=== PATIENT | male | born 1980 | race African-American/Black ===

== ENCOUNTER 2024-04-08 22:46 | Emergency (ER) | payer MEDICAID, SELFPAY ==
[2024-04-08 22:49] VITALS: BP 132/98; PULSE 115; RESP 16; TEMP 36.4; O2SAT 96; BMI 22.3
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
[2024-04-09] LABS: AST(SGOT) 83 U/L (15-37); Alanine Aminotransfer ALT/SGPT 53 U/L (16-61); Albumin, Serum 4.2 g/dL (3.2-5.0); Alkaline Phosphatase 115 U/L (45-117); Anion Gap 9 (5-15); BUN 16 mg/dL (7-18); BUN/Creat Ratio 12.8 RATIO (10-20); Calcium,Total 9.4 mg/dL (8.5-10.1); Chloride 102 mmol/L (98-107); Creatinine, Serum 1.25 mg/dL (0.70-1.30); EST Glomerular Filtration Rate 66 mL/min (>60); Est Glom Filt Rate - Afr Amer 80 mL/min (>60); Estimated Creatinine Clearance 80.06 ml/min; Globulin 4.1 g/dL (2.2-4.2); Glucose 84 mg/dL (74-106); Potassium 3.1 mmol/L (3.5-5.1); Protein, Total 8.3 g/dL (6.4-8.2); Sodium Level 136 mmol/L (136-145)
[2024-04-09] MEDS: Ibuprofen 600 MG Tablet PO (00:29)
[2024-04-09] MEDS: Potassium Chloride Oral Tablet 20 MEQ PO (00:29)
[2024-04-09 00:53] LABS: Amphetamine Urine VISTA NEGATIVE (<1000 ng/mL); Barbiturate Urine VISTA NEGATIVE (< 200 ng/mL); Benzodiazepine Urine VISTA NEGATIVE (< 200 ng/mL); Cocaine Urine VISTA POSITIVE (< 300 ng/mL); Ecstacy Urine VISTA NEGATIVE (< 500 ng/mL); Methadone Urine VISTA NEGATIVE (< 300 ng/mL); PCP Urine VISTA NEGATIVE (< 25 ng/mL); THC Urine VISTA POSITIVE (< 50 ng/mL); Vista UDS pH Range 4
[2024-04-09 01:00] VITALS: BP 134/81; PULSE 101; RESP 16; O2SAT 95
[2024-04-09 01:47] VITALS: BP 134/86; PULSE 101; RESP 16; TEMP 36.7; O2SAT 95
[2024-04-09 01:48] LABS: Absolute Lymphocyte Count 1.69 X10^3/uL (0.83-4.51); Absolute Neutrophil Count 6.4 X10^3/uL (2.0-7.7); Basophil# 0.07 X10^3/uL; Basophil% 0.8 % (0-1); Eosinophils% 1.1 % (0-5); Hematocrit 41.4 % (40-54); Hemoglobin 15.1 g/dL (13.0-16.5); Lymphocyte # 1.69 X10^3/ul (0.83-4.51); Lymphocyte % 18.3 % (19-41); Mean Corp Hgb Conc 36.5 g/dL (32-36); Mean Corpuscular Volume 82.3 fL (80-94); Mean Platelet Vol. 9.4 fl (6.2-12.0); Monocyte# 0.91 X10^3/uL; Monocyte% 9.9 % (0-10); NRBC Flagged by Analyzer 0 % (0-5); Neutrophil # 6.43 X10^3/uL (2.7-7.7); Neutrophil % 69.7 % (47-70); Platelet Count 274 K/mm3 (150-450); RBC Distribution Width CV 12.9 % (11.6-14.6); RBC Distribution Width SD 38.5 fl (35.1-43.9); Red Blood Count 5.03 M/mm3 (4.6-6.2); White Blood Count 9.2 K/mm3 (4.4-11.0)
== END 2024-04-09 02:29 | disposition home or self-care (01) ==
PROVIDERS: Emergency Provider Emergency Medicine; Visit Provider Emergency Medicine
DX: R45.851 Suicidal ideations (principal); F25.9 Schizoaffective disorder, unspecified; F31.9 Bipolar disorder, unspecified; F17.210 Nicotine dependence, cigarettes, uncomplicated; F43.0 Acute stress reaction; M79.605 Pain in left leg; Z59.00 Homelessness unspecified; F41.9 Anxiety disorder, unspecified; Z79.899 Other long term (current) drug therapy; Z79.890 Hormone replacement therapy
CPT/HCPCS: 80053; 80307; 80320; 85025; 99285; G0480

== ENCOUNTER 2024-04-09 13:49 | Emergency (ER) | payer MEDICAID, SELFPAY ==
[2024-04-09 13:51] VITALS: BP 163/109; PULSE 102; RESP 20; TEMP 36.2; BMI 22.6
--- NOTE | 2024-04-09 14:47 | EDS_ITS ---
HPI <SHAMIKA Bridges - Last Filed: 04/09/24 21:27> History of Present Illness Chief Complaint: Suicidal Narrative Narrative: Patient is a 44-year-old male with history of schizoaffective disorder who is currently homeless. Patient presents to the emergency department for suicidal ideation. Patient was seen here yesterday, patient was seen by Dr. Coon, he was able to prescribe the patient his medications, he did have a safety plan put in place, the patient had follow-up scheduled. The patient slept here last evening in a common area. Patient tried to go back to the [facility], he was told he there was no beds. Patient then went to [facility] however they were unable to help him. Patient states he is continuing to feel suicidal, he states he wants to run into traffic or drink chemical. He is here for evaluation. He states I need help. PFS <SHAMIKA Bridges - Last Filed: 04/09/24 21:27> [facility] Medical History Schizoaffective disorder Bipolar 1 disorder Anxiety Depression Home Medications ?Medication ?Instructions ?Recorded ?Last Taken ?Type aripiprazole 10 mg tablet (Abilify) 10 mg PO DAILY #30 tabs 04/09/24 Unknown Rx divalproex 500 mg tablet,delayed 500 mg PO BID #60 tabs 04/09/24 Unknown Rx release (Depakote) paroxetine HCl 10 mg tablet 10 mg PO DAILY #30 tabs 04/09/24 Unknown Rx risperidone 1 mg tablet (Risperdal) 1 mg PO QHS #30 tabs 04/09/24 Unknown Rx Social History Smoking Status: Current every day smoker tobacco type: cigarettes ROS <SHAMIKA Bridges - Last Filed: 04/09/24 21:27> ROS ED ROS Narrative Constitutional: Negative for fever, chills, weight loss, weakness Eyes: Negative for vision loss, vision change, double vision ENT: Negative for any sore throat, ear pain, congestion Cardiovascular: Negative for any chest pain, tightness, palpitations Respiratory: Negative for any cough, sputum production, hemoptysis, dyspnea, dyspnea on exertion, orthopnea Gastrointestinal: Negative for any abdominal pain, nausea, vomiting, diarrhea, constipation, blood in stool, blood in vomit : Negative for any urinary frequency, dysuria, retention, blood in urine Muscle skeletal: Negative for any neck pain, back pain Neurological: Negative for any headache, syncope, dizziness Skin: Negative for any rashes, itching, abrasions, lacerations Psychiatric: Negative for any depression, homicidal ideation. Positive for anxiety, situational stress, suicidal ideation Hematologic: Negative for any excessive bruising, easy bleeding EXAM <SHAMIKA Bridges - Last Filed: 04/09/24 21:27> Physical Exam Narrative Exam Narrative: Vital signs reviewed. Patient appears alert and orient x 4. Patient is acting appropriate following commands. HEET: Head normocephalic atraumatic, TMs clear bilaterally. Posterior pharynx is clear, moist mucous membranes. Nares clear bilaterally. Neck: Supple with no lymphadenopathy or tenderness. No signs of meningismus. Cardiac: Regular rate and rhythm no murmurs gallops or rubs, equal peripheral pulses bilaterally. Respiratory: Lungs clear to auscultation bilaterally. No chest tenderness. Abdomen: Soft, nontender, nondistended. No abdominal bruit or pulsatile masses. No hepatosplenomegaly Extremities: No peripheral edema, no signs of gross trauma or deformity. Active full range of motion of all extremities. Neuro: Cranial nerves II through XII intact, no focal neurological deficits. Skin: Clean dry and intact with no rash, purpura, petechiae, vesicles or pustules. Backs/flank: No CVA tenderness, no midline spinal tenderness, no deformity. Psych: Normal mood and affect. Patient is not psychotic however patient does exhibit suicidal ideation, states that he wants to run in front of traffic or ingest some chemicals. He states he is done this in the past. He states things are just not going his way recently. Const Vital Signs: 04/09/24 13:51 Temperature 97.2 F L Temperature Source Temporal Pulse Rate 102 H Respiratory Rate 20 H Blood Pressure 163/109 H Blood Pressure Mean 127 Positive well nourished and well developed General Appearance ED: well developed <Dr. Adolph Howard DO - Last Filed: 04/09/24 21:28> Physical Exam Const Vital Signs: 04/09/24 13:51 Temperature 97.2 F L Temperature Source Temporal Pulse Rate 102 H Respiratory Rate 20 H Blood Pressure 163/109 H Blood Pressure Mean 127 MDM <Romulo Dutton NON LICENSED NUCLEAR PLANT OPERATOR-C - Last Filed: 04/09/24 21:27> [facility] Lab Data Labs: Laboratory Results - last 24 hr 04/09/24 04/09/24 14:55 14:56 WBC 7.3 RBC 4.93 Hgb 14.6 Hct 40.5 MCV 82.2 MCH 29.6 MCHC 36.0 RDW Std Deviation 38.0 RDW Coeff of Rojelio 12.8 Plt Count 262 MPV 9.5 Immature Gran % (Auto) 0.300 Neut % (Auto) 74.0 H Lymph % (Auto) 13.8 L [place] % (Auto) 10.6 H Eos % (Auto) 0.8 Baso % (Auto) 0.5 Absolute Neuts (auto) 5.4 Absolute Lymphs (auto) 1.01 Nucleated RBC % 0 Sodium 136 Potassium 3.7 Chloride 104 Carbon Dioxide 26.0 Anion Gap 6 BUN 13 Creatinine 1.03 Estim Creat Clear Calc 98.61 Est GFR (MDRD) Af Amer 100 Est GFR (MDRD) Non-Af 83 BUN/Creatinine Ratio 12.6 Glucose 64 L Calcium 9.1 Urine Opiates Screen NEGATIVE Urine Methadone Screen NEGATIVE Ur Barbiturates Screen NEGATIVE Ur Phencyclidine Scrn NEGATIVE Ur Amphetamines Screen NEGATIVE MDMA (Ecstasy) Screen NEGATIVE U Benzodiazepines Scrn NEGATIVE Urine Cocaine Screen POSITIVE H U Cannabinoids Screen NEGATIVE Ur Drug Screen Comment Ethyl Alcohol < 3.0 Treatment and Re-Evaluation :: Differential diagnosis includes however is not limited to: Suicidal ideation, homicidal ideation, anxiety, stress-induced psychosis, medication noncompliance, homelessness Patient appears to be in no obvious respiratory distress vital signs are stable. Patient presents to the emergency department with complaints of suicidal ideation, homelessness. Patient was seen here last evening, he was supposed to follow-up, get his medications refilled however he was unable to do so. Patient is now here stating that his suicidal ideations worse. Patient received a suicide order set, as well as drug screening, basic labs. Patient is not psychotic. I spoke with crisis, they will be in to evaluate the patient. Patient has a sitter currently. Patient remained stable, laboratory values showed normal CBC, patient's ismael mistries were unremarkable, patient's toxicology shows positive for cocaine abuse. Patient's alcohol is negative. Patient is currently talking with crisis. Patient was evaluated by crisis. Patient will be admitted to a psychiatric facility. Patient stable for admission to [facility] This patient was seen with a PA/NON LICENSED NUCLEAR PLANT OPERATOR Individually assessed they patient including history and physical. I have reviewed everything on the chart that is available and agree with the documentation provided by the PA/NON LICENSED NUCLEAR PLANT OPERATOR including discussion about the assessment, treatment plan, discussion, and return precautions. Patient presented with suicidal thoughts. He is unable to get his medication filled or have follow-up outpatient psychiatric care. He was medically screened and cleared for crisis to see him. Crisis felt it was best to admit him and placed him. Patient was accepted to [facility]. Dr. Duron was the accepting physician <Dr. Adolph Howard, DO - Last Filed: 04/09/24 21:28> [facility] Lab Data Labs: Laboratory Results - last 24 hr 04/09/24 04/09/24 14:55 14:56 WBC 7.3 RBC 4.93 Hgb 14.6 Hct 40.5 MCV 82.2 MCH 29.6 MCHC 36.0 RDW Std Deviation 38.0 RDW Coeff of Rojelio 12.8 Plt Count 262 MPV 9.5 Immature Gran % (Auto) 0.300 Neut % (Auto) 74.0 H Lymph % (Auto) 13.8 L [place] % (Auto) 10.6 H Eos % (Auto) 0.8 Baso % (Auto) 0.5 Absolute Neuts (auto) 5.4 Absolute Lymphs (auto) 1.01 Nucleated RBC % 0 Sodium 136 Potassium 3.7 Chloride 104 Carbon Dioxide 26.0 Anion Gap 6 BUN 13 Creatinine 1.03 Estim Creat Clear Calc 98.61 Est GFR (MDRD) Af Amer 100 Est GFR (MDRD) Non-Af 83 BUN/Creatinine Ratio 12.6 Glucose 64 L Calcium 9.1 Urine Opiates Screen NEGATIVE Urine Methadone Screen NEGATIVE Ur Barbiturates Screen NEGATIVE Ur Phencyclidine Scrn NEGATIVE Ur Amphetamines Screen NEGATIVE MDMA (Ecstasy) Screen NEGATIVE U Benzodiazepines Scrn NEGATIVE Urine Cocaine Screen POSITIVE H U Cannabinoids Screen NEGATIVE Ur Drug Screen Comment Ethyl Alcohol < 3.0 Treatment and Re-Evaluation :: Differential diagnosis includes however is not limited to: Suicidal ideation, homicidal ideation, anxiety, stress-induced psychosis, medication noncompliance, homelessness Patient appears to be in no obvious respiratory distress vital signs are stable. Patient presents to the emergency department with complaints of suicidal ideation, homelessness. Patient was seen here last evening, he was supposed to follow-up, get his medications refilled however he was unable to do so. Patient is now here stating that his suicidal ideations worse. Patient received a suicide order set, as well as drug screening, basic labs. Patient is not psychotic. I spoke with crisis, they will be in to evaluate the patient. Patient has a sitter currently. Patient remained stable, laboratory values showed normal CBC, patient's chemistries were unremarkable, patient's toxicology shows positive for cocaine abuse. Patient's alcohol is negative. Patient is currently talking with crisis. Patient was evaluated by crisis. Patient will be admitted to a psychiatric facility. This patient was seen with a PA/NON LICENSED NUCLEAR PLANT OPERATOR Individually assessed they patient including history and physical. I have reviewed everything on the chart that is available and agree with the documentation provided by the PA/NON LICENSED NUCLEAR PLANT OPERATOR including discussion about the assessment, treatment plan, discussion, and return precautions. Patient presented with suicidal thoughts. He is unable to get his medication filled or have follow-up outpatient psychiatric care. He was medically screened and cleared for crisis to see him. Crisis felt it was best to admit him and placed him. Patient was accepted to [facility]. Dr. Duron was the accepting physician Discharge Plan Triage Chief Complaint: Suicidal ED Midlevel Provider: Romulo Dutton ED Provider: Adolph Howard Dx/Rx/DC Orders Prescriptions: No Action aripiprazole [Abilify] 10 mg tablet 10 mg PO DAILY Qty: 30 0RF paroxetine HCl 10 mg tablet 10 mg PO DAILY Qty: 30 0RF risperidone [Risperdal] 1 mg tablet 1 mg PO QHS Qty: 30 0RF divalproex [Depakote] 500 mg tablet,delayed release (DR/EC) 500 mg PO BID Qty: 60 0RF Primary Care Provider: Care Physician,No Primary Referrals: Care Physician,No Primary [Primary Care Provider] - Print Language: Afghan Disposition Disposition: Psychiatric Hospital or Unit Discharge Location: [facility]
[2024-04-09 15:08] LABS: Absolute Lymphocyte Count 1.01 X10^3/uL (0.83-4.51); Absolute Neutrophil Count 5.4 X10^3/uL (2.0-7.7); Basophil# 0.04 X10^3/uL; Basophil% 0.5 % (0-1); Eosinophil# 0.06 X10^3/uL; Eosinophils% 0.8 % (0-5); Hematocrit 40.5 % (40-54); Hemoglobin 14.6 g/dL (13.0-16.5); Lymphocyte # 1.01 X10^3/ul (0.83-4.51); Lymphocyte % 13.8 % (19-41); Mean Corpuscular Hgb 29.6 pg (27.0-32.0); Mean Corpuscular Volume 82.2 fL (80-94); Mean Platelet Vol. 9.5 fl (6.2-12.0); Monocyte# 0.78 X10^3/uL; Monocyte% 10.6 % (0-10); NRBC Flagged by Analyzer 0 % (0-5); Neutrophil # 5.43 X10^3/uL (2.7-7.7); Platelet Count 262 K/mm3 (150-450); RBC Distribution Width CV 12.8 % (11.6-14.6); Red Blood Count 4.93 M/mm3 (4.6-6.2); White Blood Count 7.3 K/mm3 (4.4-11.0)
[2024-04-09 15:23] LABS: Alcohol, Blood (Medical)-Serum < 3.0 mg/dL
[2024-04-09 15:25] LABS: Anion Gap 6 (5-15); BUN 13 mg/dL (7-18); BUN/Creat Ratio 12.6 RATIO (10-20); Calcium,Total 9.1 mg/dL (8.5-10.1); Chloride 104 mmol/L (98-107); Creatinine, Serum 1.03 mg/dL (0.70-1.30); EST Glomerular Filtration Rate 83 mL/min (>60); Est Glom Filt Rate - Afr Amer 100 mL/min (>60); Estimated Creatinine Clearance 98.61 ml/min; Glucose 64 mg/dL (74-106); Potassium 3.7 mmol/L (3.5-5.1); Sodium Level 136 mmol/L (136-145)
[2024-04-09 15:58] LABS: Amphetamine Urine VISTA NEGATIVE (<1000 ng/mL); Barbiturate Urine VISTA NEGATIVE (< 200 ng/mL); Benzodiazepine Urine VISTA NEGATIVE (< 200 ng/mL); Cocaine Urine VISTA POSITIVE (< 300 ng/mL); Ecstacy Urine VISTA NEGATIVE (< 500 ng/mL); Methadone Urine VISTA NEGATIVE (< 300 ng/mL); PCP Urine VISTA NEGATIVE (< 25 ng/mL); THC Urine VISTA NEGATIVE (< 50 ng/mL); Vista UDS pH Range 6
--- NOTE | 2024-04-09 19:00 | ED.RN ---
JUAN CARLOS FROM [facility] CALLED, PT REFERRED TO [facility].
[2024-04-09] MEDS: Acetaminophen 500 MG Tablet 1000 MG PO (20:49)
--- NOTE | 2024-04-09 21:23 | ED.RN ---
PT ACCEPTED AT [facility] INTAKE 1 N2N [phone] [facility] ETA 000/010
--- NOTE | 2024-04-09 21:42 | ED.RN ---
report called to Brissa at [facility]
[2024-04-09 23:29] VITALS: BP 137/89; PULSE 96; RESP 17; O2SAT 99
[2024-04-10 02:20] VITALS: BP 134/74; PULSE 76; RESP 16; TEMP 36.6; O2SAT 99
== END 2024-04-10 02:21 ==
PROVIDERS: Nurse Practitioner; Emergency Provider Student in an Organized Health Care Education/Training Program; Visit Provider Student in an Organized Health Care Education/Training Program
DX: R45.851 Suicidal ideations (principal); F25.9 Schizoaffective disorder, unspecified; F17.210 Nicotine dependence, cigarettes, uncomplicated; Z59.00 Homelessness unspecified; Z79.899 Other long term (current) drug therapy
CPT/HCPCS: 36415; 80048; 80307; 80320; 85025; 99285; G0480

== ENCOUNTER 2024-09-08 19:54 | Emergency (ER) | payer MEDICAID, SELFPAY ==
[2024-09-08 19:55] VITALS: BP 107/75; PULSE 115; RESP 20; TEMP 36.6; O2SAT 100
[2024-09-08 20:40] LABS: Absolute Lymphocyte Count 2.38 X10^3/uL (0.83-4.51); Absolute Neutrophil Count 3.4 X10^3/uL (2.0-7.7); Basophil# 0.05 X10^3/uL; Basophil% 0.7 % (0-1); Eosinophil# 0.37 X10^3/uL; Eosinophils% 5.3 % (0-5); Hematocrit 45.2 % (40-54); Hemoglobin 16.7 g/dL (13.0-16.5); Lymphocyte # 2.38 X10^3/ul (0.83-4.51); Lymphocyte % 34.2 % (19-41); Mean Corp Hgb Conc 36.9 g/dL (32-36); Mean Corpuscular Hgb 29.3 pg (27.0-32.0); Mean Corpuscular Volume 79.3 fL (80-94); Mean Platelet Vol. 9.3 fl (6.2-12.0); Monocyte# 0.77 X10^3/uL; Monocyte% 11.1 % (0-10); NRBC Flagged by Analyzer 0 % (0-5); Neutrophil # 3.37 X10^3/uL (2.7-7.7); Neutrophil % 48.4 % (47-70); Platelet Count 301 K/mm3 (150-450); RBC Distribution Width CV 13.4 % (11.6-14.6); RBC Distribution Width SD 38.4 fl (35.1-43.9)
[2024-09-08 20:53] LABS: Anion Gap 8 (5-15); BUN 12 mg/dL (7-18); BUN/Creat Ratio 9.2 RATIO (10-20); Chloride 105 mmol/L (98-107); EST Glomerular Filtration Rate 63 mL/min (>60); Est Glom Filt Rate - Afr Amer 76 mL/min (>60); Glucose 102 mg/dL (74-106); Potassium 3.5 mmol/L (3.5-5.1); Sodium Level 136 mmol/L (136-145)
[2024-09-08 20:55] LABS: Amphetamine Urine VISTA POSITIVE (<1000 ng/mL); Barbiturate Urine VISTA NEGATIVE (< 200 ng/mL); Benzodiazepine Urine VISTA NEGATIVE (< 200 ng/mL); Cocaine Urine VISTA NEGATIVE (< 300 ng/mL); Ecstacy Urine VISTA POSITIVE (< 500 ng/mL); Methadone Urine VISTA NEGATIVE (< 300 ng/mL); PCP Urine VISTA NEGATIVE (< 25 ng/mL); THC Urine VISTA POSITIVE (< 50 ng/mL); Vista UDS pH Range 5
[2024-09-08 22:22] VITALS: BMI 22.7
[2024-09-08 23:04] LABS: CPK Total, Creatine Kinase 711 U/L (39-308)
[2024-09-08] MEDS: 0.9% Normal Saline (1000mL) 1,000 ML 999 ML IV (23:28)
[2024-09-09 07:30] VITALS: BP 111/69; PULSE 70
[2024-09-09 11:37] VITALS: BP 111/69; PULSE 70; RESP 16; TEMP 36.3; O2SAT 98
== END 2024-09-09 11:39 ==
PROVIDERS: Emergency Provider Emergency Medicine; Visit Provider Emergency Medicine
DX: R45.851 Suicidal ideations (principal); F25.9 Schizoaffective disorder, unspecified; F31.9 Bipolar disorder, unspecified; F41.9 Anxiety disorder, unspecified; S80.12XA Contusion of left lower leg, initial encounter; Y08.02XA Assault by strike by baseball bat, initial encounter; Z59.02 Unsheltered homelessness; F17.210 Nicotine dependence, cigarettes, uncomplicated; Z91.51 Personal history of suicidal behavior; Z79.899 Other long term (current) drug therapy; Z87.828 Personal history of other (healed) physical injury and trauma; Z98.890 Other specified postprocedural states
CPT/HCPCS: 36415; 73590; 80048; 80307; 82077; 82550; 85025; 96360; 99285; J7030; A4216

== ENCOUNTER 2024-09-19 10:33 | Emergency (ER) | payer MEDICAID, SELFPAY ==
[2024-09-19 10:35] VITALS: BP 134/106; PULSE 129; RESP 18; TEMP 36.1; O2SAT 100; BMI 24.0
--- NOTE | 2024-09-19 10:55 | EX.ED.VIS.PS ---
HPI HPI - Psych History of Present Illness Chief Complaint: Suicidal Narrative Narrative: 44-year-old male past medical history of psychiatric disorder, depression and anxiety, presents pink slipped by police because of suicidal ideation and depression. He relates history that he was seen in the emergency department on 08 September, approximately 11 days ago. He was transferred to [facility] and was released 2 days ago. According to police, they responded to a 911 call where they found the patient holding a knife to his throat and stating that he was going to slit his wrists. He had previously cut his forehead. Police were finally able to convince the patient to drop his knife. They bring him in for psychiatric evaluation. Patient admits to taking his medications since he got out including Abilify, Paxil, and Risperdal. He does admit to using amphetamines/methamphetamines last night, smoking marijuana, and drinking alcohol. He presents because of the suicidal ideation and threats with a knife, and depression. [facility] Medical History Schizoaffective disorder Bipolar 1 disorder Anxiety Depression Home Medications ?Medication ?Instructions ?Recorded ?Last Taken ?Type aripiprazole 10 mg tablet (Abilify) 10 mg PO DAILY #30 tabs 04/09/24 Unknown Rx divalproex 500 mg tablet,delayed 500 mg PO BID #60 tabs 04/09/24 Unknown Rx release (Depakote) paroxetine HCl 10 mg tablet 10 mg PO DAILY #30 tabs 04/09/24 Unknown Rx risperidone 1 mg tablet (Risperdal) 1 mg PO QHS #30 tabs 04/09/24 Unknown Rx Allergy/AdvReac Type Severity Reaction Status Date / Time No Known Allergies Allergy Verified 09/19/24 10:35 Social History Smoking Status: Current every day smoker tobacco type: cigarettes ROS ROS ED ROS Narrative Mildly limited secondary to psychiatric disorder. Patient cooperative. Admits to depression and suicidal ideation. He states is over something that may have happened in 2018. However, he is evasive on further questioning. Positive suicidal ideation. EXAM Physical Exam Narrative Exam Narrative: Afebrile. Vital signs noted. Positive tachycardia. Lungs clear to auscultation bilaterally. Abdomen soft nontender with normoactive bowel sounds. Neurological examination nonfocal and nonlateralizing. Skin examination shows superficial abrasion to his forehead that is linear, no active bleeding. Psychiatric examination shows a depressed affect and he is almost tearful on examination. Currently cooperative. No internal stimulation. Positive suicidal ideation. Const Vital Signs: 09/19/24 10:35 Temperature 97 F L Temperature Source Temporal Pulse Rate 129 H Respiratory Rate 18 Blood Pressure 134/106 H Blood Pressure Mean 115 Pulse Ox 100 Oxygen Delivery Method Room Air MDM MDM MDM Narrative Medical decision making narrative: I reviewed the patient's prior records. He has diagnosis of schizoaffective disorder and bipolar 1. He may be having more of a bipolar manic episode versus exacerbation of his schizoaffective disorder. Given the events as described on the 72-hour psychiatric hold, I do feel that medical screening labs need to be obtained and then evaluation by the crisis counselor. As he was recently discharged from a psychiatric facility, he may need placement again regarding the events of today. While on examination he did not appear to be internally stimulated, he told the RN that he was hearing voices. He was administered Haldol 2 mg orally. EKG was obtained and interpreted by myself as sinus tachycardia at 125 bpm without ectopy or acute ST changes. No STEMI. I reviewed his laboratory work and he has a white count of 12.4 with hemoglobin 15.4, hematocrit 42.0, platelet count 266. BUN is 15 with creatinine slightly elevated at 1.48, just over his normal baseline. AST elevated at 57 which I think is nonspecific. Ethyl alcohol negative at 16. Additionally, urine for drugs of abuse positive for amphetamines and MDMA. At this point in time, I feel he is medically cleared for evaluation by the mental health crisis counselor. In discussion with the mental health crisis counselor, it was felt that given his recent discharge, and the patient's actions today and suicidality that he will require placement again. Patient is currently awaiting placement in a psychiatric facility. He will be signed out to the oncoming physician as needed to ensure transfer. Patient is in stable condition. History & Record Review Discussion w/independent historian: Patient Lab Data Attestation: I reviewed the patient's lab results. Labs: Laboratory Results - last 24 hr 09/19/24 09/19/24 10:55 11:05 WBC 12.4 H RBC 5.32 Hgb 15.4 Hct 42.0 MCV 78.9 L MCH 28.9 MCHC 36.7 H RDW Std Deviation 38.5 RDW Coeff of Rojelio 13.6 Plt Count 266 MPV 9.8 Immature Gran % (Auto) 0.400 Neut % (Auto) 72.8 H Lymph % (Auto) 15.4 L Gibson % (Auto) 11.0 H Eos % (Auto) 0.1 Baso % (Auto) 0.3 Absolute Neuts (auto) 9.0 H Absolute Lymphs (auto) 1.92 Nucleated RBC % 0 Sodium 138 Potassium 3.7 Chloride 103 Carbon Dioxide 27.0 Anion Gap 8 BUN 15 Creatinine 1.48 H Estim Creat Clear Calc 70.48 Est GFR (MDRD) Af Amer 66 Est GFR (MDRD) Non-Af 54 L BUN/Creatinine Ratio 10.1 Glucose 95 Calcium 9.3 Total Bilirubin 0.70 AST 57 H ALT 30 Alkaline Phosphatase 69 Total Protein 6.9 Albumin 3.9 Globulin 3.0 Albumin/Globulin Ratio 1.3 Urine Opiates Screen NEGATIVE Urine Methadone Screen NEGATIVE Ur Barbiturates Screen NEGATIVE Ur Phencyclidine Scrn NEGATIVE Ur Amphetamines Screen POSITIVE H MDMA (Ecstasy) Screen POSITIVE H U Benzodiazepines Scrn NEGATIVE Urine Cocaine Screen NEGATIVE U Cannabinoids Screen NEGATIVE Ur Drug Screen Comment Ethyl Alcohol 16.0 Discharge Plan Triage Chief Complaint: Suicidal ED Provider: Alexys Renae Dx/Rx/DC Orders Prescriptions: No Action aripiprazole [Abilify] 10 mg tablet 10 mg PO DAILY Qty: 30 0RF paroxetine HCl 10 mg tablet 10 mg PO DAILY Qty: 30 0RF risperidone [Risperdal] 1 mg tablet 1 mg PO QHS Qty: 30 0RF divalproex [Depakote] 500 mg tablet,delayed release (DR/EC) 500 mg PO BID Qty: 60 0RF Primary Care Provider: Care Physician,No Primary Referrals: Care Physician,No Primary [Primary Care Provider] - Print Language: Jordanian
--- NOTE | 2024-09-19 10:56 | EKG12_ITS ---
Test Reason : SI Blood Pressure : */* mmHG Vent. Rate : 125 BPM Atrial Rate : 125 BPM P-R Int : 134 ms QRS Dur : 92 ms QT Int : 324 ms P-R-T Axes : 65 59 18 degrees QTcB Int : 467 ms Sinus tachycardia Otherwise normal ECG Confirmed by EDEL DERAS, LEATHA ([id number]), production editor GARCÍA JAIN ([id number]) on 09/21/2024 9:41:47 AM Referred By: Confirmed By: LEATHA HOLLINGSWORTH MD
[2024-09-19 11:28] LABS: Absolute Lymphocyte Count 1.92 X10^3/uL (0.83-4.51); Basophil# 0.04 X10^3/uL; Basophil% 0.3 % (0-1); Eosinophil# 0.01 X10^3/uL; Eosinophils% 0.1 % (0-5); Hemoglobin 15.4 g/dL (13.0-16.5); Lymphocyte # 1.92 X10^3/ul (0.83-4.51); Lymphocyte % 15.4 % (19-41); Mean Corp Hgb Conc 36.7 g/dL (32-36); Mean Corpuscular Hgb 28.9 pg (27.0-32.0); Mean Corpuscular Volume 78.9 fL (80-94); Mean Platelet Vol. 9.8 fl (6.2-12.0); Monocyte# 1.37 X10^3/uL; NRBC Flagged by Analyzer 0 % (0-5); Neutrophil # 9.04 X10^3/uL (2.7-7.7); Neutrophil % 72.8 % (47-70); Platelet Count 266 K/mm3 (150-450); RBC Distribution Width CV 13.6 % (11.6-14.6); RBC Distribution Width SD 38.5 fl (35.1-43.9); Red Blood Count 5.32 M/mm3 (4.6-6.2); White Blood Count 12.4 K/mm3 (4.4-11.0)
[2024-09-19 11:32] LABS: ALB/GLOB Ratio 1.3 RATIO (0.9-2.4); AST(SGOT) 57 U/L (15-37); Alanine Aminotransfer ALT/SGPT 30 U/L (16-61); Albumin, Serum 3.9 g/dL (3.2-5.0); Alkaline Phosphatase 69 U/L (45-117); Anion Gap 8 (5-15); BUN 15 mg/dL (7-18); BUN/Creat Ratio 10.1 RATIO (10-20); Calcium,Total 9.3 mg/dL (8.5-10.1); Chloride 103 mmol/L (98-107); Creatinine, Serum 1.48 mg/dL (0.70-1.30); EST Glomerular Filtration Rate 54 mL/min (>60); Est Glom Filt Rate - Afr Amer 66 mL/min (>60); Estimated Creatinine Clearance 70.48 ml/min; Glucose 95 mg/dL (74-106); Potassium 3.7 mmol/L (3.5-5.1); Protein, Total 6.9 g/dL (6.4-8.2); Sodium Level 138 mmol/L (136-145)
[2024-09-19 11:37] LABS: Amphetamine Urine VISTA POSITIVE (<1000 ng/mL); Barbiturate Urine VISTA NEGATIVE (< 200 ng/mL); Benzodiazepine Urine VISTA NEGATIVE (< 200 ng/mL); Cocaine Urine VISTA NEGATIVE (< 300 ng/mL); Ecstacy Urine VISTA POSITIVE (< 500 ng/mL); Methadone Urine VISTA NEGATIVE (< 300 ng/mL); PCP Urine VISTA NEGATIVE (< 25 ng/mL); THC Urine VISTA NEGATIVE (< 50 ng/mL); Vista UDS pH Range 6
[2024-09-19] MEDS: Haloperidol 1 MG Tablet 2 MG PO (11:54)
--- NOTE | 2024-09-19 11:54 | ED.RN ---
scanner would not work. over-ride for manager med surg.
[2024-09-19 15:21] VITALS: BP 143/96; PULSE 118; O2SAT 99
--- NOTE | 2024-09-19 16:37 | ED.RN ---
[facility] given report. Nurse to Nurse given to Joanne Palomino
[2024-09-19 16:43] VITALS: BP 143/96; PULSE 118; RESP 18; TEMP 36.1; O2SAT 99
== END 2024-09-19 16:45 ==
PROVIDERS: Emergency Provider Emergency Medicine; Visit Provider Emergency Medicine
DX: R45.851 Suicidal ideations (principal); F25.9 Schizoaffective disorder, unspecified; X83.8XXA Intentional self-harm by other specified means, initial encounter; F32.A Depression, unspecified; F41.9 Anxiety disorder, unspecified; R00.0 Tachycardia, unspecified; F17.210 Nicotine dependence, cigarettes, uncomplicated; S00.81XA Abrasion of other part of head, initial encounter; Z79.899 Other long term (current) drug therapy
CPT/HCPCS: 80053; 80307; 82077; 85025; 93005; 99285; A4216